=== PATIENT | male | born 1960 | race Caucasian/White ===

== ENCOUNTER → 2017-08-02 | Outpatient (CLI) | payer OTHER ==
[~2017-08-02] MED LIST: BACTRIM DS 8001 TA1 PO; BENADRYL25 M1 PO; BENADRYL25 M2 PO; CLARITIN10 MG PO; LEVOFLOXACIN500 MG PO; MEDROL DOSEPAK4 MG PO; NORCO 325 MG-51 TAB PO; PERCOCET 325 MG1 TA7 PO; PREDNISONE10 MG PO; TENORETIC 50 501 TAB PO; VICODIN 5/500 505 MG PO; ZITHROMAX Z PA250 MG PO
[2017-08-02 14:32] LABS: BASO # 0.1 10*3/uL (0.0-0.1); BASO % 0.6 % (0.0-1.0); EOS # 0.2 10*3/uL (0.0-0.4); EOS % 2.1 % (1.0-4.0); HEMATOCRIT 53.2 % (42.0-52.0); HEMOGLOBIN 18.8 g/dl (14.0-18.0); LYMPH # 4.3 10*3/uL (1.3-4.4); LYMPH % 43.6 % (27.0-41.0); MEAN CELL VOLUME 89.7 fl (80.0-94.0); MEAN CORPUSCULAR HGB 31.7 pg (27.0-31.0); MEAN CORPUSCULAR HGB CONC 35.3 g/dl (33.0-37.0); MEAN PLATELET VOLUME 9.6 fl (9.6-12.3); MONO # 0.8 10*3/uL (0.1-1.0); MONO % 8.3 % (3.0-9.0); NEUT # 4.5 10*3/uL (2.3-7.9); NEUT % 45.3 % (47.0-73.0); PLATELET COUNT AUTOMATED 309 10*3/uL (130-400); RED BLOOD COUNT 5.93 10*6/uL (4.50-5.90); RED CELL DISTRI WIDTH 12.8 % (0-14.5); WHITE BLOOD COUNT 9.9 10*3/uL (4.8-10.8)
[2017-08-02 14:44] LABS: ALBUMIN 2.5 gm/dl (3.1-4.5); ALKALINE PHOSPHATASE 60 U/L (45-117); BILIRUBIN, DIRECT < 0.1 mg/dL (0.0-0.2); BUN 27 mg/dl (7-24); CHLORIDE 99 mmol/L (98-107); CHOLESTEROL 369 mg/dL (<200); CREATININE 1.85 mg/dL (0.70-1.30); HDL CHOLESTEROL 36 mg/dl (40-60); POTASSIUM 3.7 mmol/L (3.5-5.1); SGOT/AST 19 IU/L (3-35); SGPT/ALT 22 U/L (12-78); SODIUM 136 mmol/L (136-145); THYROXINE (T4) TOTAL 7.6 ug/dl (4.5-12.1); TOTAL PROTEIN 6.4 gm/dL (6.4-8.2); TRIGLYCERIDES 433 mg/dl (<150)
== END | disposition home or self-care (01) ==
LOC: LAB 13:43
PROVIDERS: Family Medicine
DX: Z12.5 Encounter for screening for malignant neoplasm of prostate (principal); G47.00 Insomnia, unspecified; R35.1 Nocturia; I10 Essential (primary) hypertension

== ENCOUNTER → 2018-07-26 | Outpatient (CLI) | payer OTHER ==
[~2018-07-26] MED LIST changes: +ACYCLOVIR400 MG PO; +ALPRAZOLAM0.5 M3 PO; +AMBIEN10 M1 PO; +ASPIRIN LITE C325 MG PO; +ATARAX,VISTARIL50 MG PO; +ATENOLOL-CHLOR1 EAC1 PO; +CETIRIZINE HYDR10 MG PO; +COMPAZINE10 M1 PO; +CYCLOPHOSPHAMIDE IV; +CYMBALTA30 MG PO; +DECADRON4 MG PO; +DULOXETINE HCL30 MG PO; +IMODIUM A-D2 M2 PO; +K-TAB20 MEQ PO; +LIPITOR40 MG PO; +MONTELUKAST SOD10 MG PO; +NORCO 5-325 TA1 EACH PO; +OMEPRAZOLE D/R20 MG PO; +QUESTRAN POWDE378 GM PO; +SINGULAIR10 M1 PO; +VELCADE3.5 MG SC; +VITAMIN D31000 UNIT PO; +XANAX0.5 MG PO; +ZOFRAN8 M1 PO; +ZOLPIDEM TART10 MG PO; +ZYRTEC10 MG PO; +[UNRECOGNIZED DRUG - OTHER] MC
[2018-07-26 12:08] LABS: BASO # 0.1 10*3/uL (0.0-0.1); EOS # 0.5 10*3/uL (0.0-0.4); EOS % 4.1 % (1.0-4.0); HEMATOCRIT 45.4 % (42.0-52.0); HEMOGLOBIN 15.5 g/dl (14.0-18.0); LYMPH # 3.4 10*3/uL (1.3-4.4); LYMPH % 31.4 % (27.0-41.0); MEAN CELL VOLUME 93.4 fl (80.0-94.0); MEAN CORPUSCULAR HGB 31.9 pg (27.0-31.0); MEAN CORPUSCULAR HGB CONC 34.1 g/dl (33.0-37.0); MEAN PLATELET VOLUME 9.8 fl (9.6-12.3); MONO % 8.7 % (3.0-9.0); NEUT # 5.9 10*3/uL (2.3-7.9); NEUT % 54.4 % (47.0-73.0); PLATELET COUNT AUTOMATED 408 10*3/uL (130-400); RED BLOOD COUNT 4.86 10*6/uL (4.50-5.90); RED CELL DISTRI WIDTH 15.1 % (0-14.5); WHITE BLOOD COUNT 10.9 10*3/uL (4.8-10.8)
[2018-07-26 12:16] LABS: ALBUMIN 1.9 gm/dl (3.1-4.5); CREATININE 4.2 mg/dL (0.70-1.30); POTASSIUM 2.7 mmol/L (3.5-5.1); TOTAL PROTEIN 6.4 gm/dL (6.4-8.2)
[2018-07-26 13:02] LABS: VITAMIN D, 25-HYDROXY 15.1 ng/mL (30-100)
== END | disposition home or self-care (01) ==
LOC: RESCLI 02:24
PROVIDERS: Internal Medicine Nephrology
DX: Z12.11 Encounter for screening for malignant neoplasm of colon (principal); L29.9 Pruritus, unspecified; I10 Essential (primary) hypertension; G62.9 Polyneuropathy, unspecified; F32.9 Major depressive disorder, single episode, unspecified; F41.9 Anxiety disorder, unspecified; N28.9 Disorder of kidney and ureter, unspecified; D75.1 Secondary polycythemia; F17.200 Nicotine dependence, unspecified, uncomplicated; G47.00 Insomnia, unspecified; Z76.89 Persons encountering health services in other specified circumstances; Z71.6 Tobacco abuse counseling; Z79.899 Other long term (current) drug therapy; Z88.0 Allergy status to penicillin; Z88.8 Allergy status to other drugs, medicaments and biological substances

== ENCOUNTER → 2018-07-27 | Outpatient (CLI) | payer OTHER ==
[2018-07-27 12:36] LABS: BILIRUBIN NEGATIVE (NEGATIVE); BLOOD 2+ (NEGATIVE); CLARITY CLEAR (CLEAR); COLOR YELLOW (YELLOW); GLUCOSE 1+ (NEGATIVE); KETONE NEGATIVE (NEGATIVE); LEUKO ESTERASE NEGATIVE (NEGATIVE); NITRITE NEGATIVE (NEGATIVE); URINE CREATININE RANDOM 90.3 mg/dL; UROBILINOGEN 0.2 E.U./dl (0.2-1.0)
[2018-07-27 13:19] LABS: BACTERIA TRACE
[2018-07-27 13:59] LABS: ALBUMIN 1.8 gm/dl (3.1-4.5)
[2018-07-27 14:06] LABS: CREATININE 4.3 mg/dL (0.70-1.30); TOTAL PROTEIN 6.1 gm/dL (6.4-8.2)
== END | disposition home or self-care (01) ==
LOC: RESCLI 10:53
PROVIDERS: Internal Medicine
DX: N28.1 Cyst of kidney, acquired (principal); M16.12 Unilateral primary osteoarthritis, left hip; R30.0 Dysuria; L29.9 Pruritus, unspecified; I10 Essential (primary) hypertension; G62.9 Polyneuropathy, unspecified; F32.9 Major depressive disorder, single episode, unspecified; F41.9 Anxiety disorder, unspecified; G47.00 Insomnia, unspecified; E87.6 Hypokalemia; F17.200 Nicotine dependence, unspecified, uncomplicated; Z79.899 Other long term (current) drug therapy; Z88.0 Allergy status to penicillin

== ENCOUNTER → 2018-08-17 | Outpatient (CLI) | payer OTHER ==
[2018-08-17 14:09] LABS: BASO # 0.1 10*3/uL (0.0-0.1); BASO % 0.9 % (0.0-1.0); EOS # 0.6 10*3/uL (0.0-0.4); EOS % 5.8 % (1.0-4.0); HEMATOCRIT 42.5 % (42.0-52.0); HEMOGLOBIN 13.8 g/dl (14.0-18.0); LYMPH # 2.8 10*3/uL (1.3-4.4); MEAN CELL VOLUME 97.3 fl (80.0-94.0); MEAN CORPUSCULAR HGB 31.6 pg (27.0-31.0); MEAN CORPUSCULAR HGB CONC 32.5 g/dl (33.0-37.0); MEAN PLATELET VOLUME 10.2 fl (9.6-12.3); MONO # 0.6 10*3/uL (0.1-1.0); MONO % 6.2 % (3.0-9.0); NEUT # 5.9 10*3/uL (2.3-7.9); NEUT % 58.8 % (47.0-73.0); PLATELET COUNT AUTOMATED 314 10*3/uL (130-400); RED BLOOD COUNT 4.37 10*6/uL (4.50-5.90); RED CELL DISTRI WIDTH 14.6 % (0-14.5); WHITE BLOOD COUNT 10.1 10*3/uL (4.8-10.8)
[2018-08-17 14:28] LABS: ALBUMIN 1.8 gm/dl (3.1-4.5); CREATININE 4.58 mg/dL (0.70-1.30); PHOSPHOROUS 3.5 mg/dL (2.5-4.9); POTASSIUM 3.2 mmol/L (3.5-5.1); TOTAL PROTEIN 5.4 gm/dL (6.4-8.2)
== END | disposition home or self-care (01) ==
LOC: LAB 12:54
PROVIDERS: Nurse Practitioner Family
DX: Z12.5 Encounter for screening for malignant neoplasm of prostate (principal); I12.0 Hypertensive chronic kidney disease with stage 5 chronic kidney disease or end stage renal disease; N18.5 Chronic kidney disease, stage 5

== ENCOUNTER → 2018-09-02 | Outpatient (CLI) | payer OTHER | END | disposition home or self-care (01) | LOC: CT 15:00 | DX: N28.1 Cyst of kidney, acquired (principal) ==

== ENCOUNTER 2018-09-23 16:06 | Emergency (ER) | payer OTHER ==
[~2018-09-23] VITALS: Ht 193 cm; Wt 87.1 kg
[~2018-09-23 16:06] MED LIST changes: -ACYCLOVIR400 MG PO; -ASPIRIN LITE C325 MG PO; -COMPAZINE10 M1 PO; -CYCLOPHOSPHAMIDE IV; -DECADRON4 MG PO; -IMODIUM A-D2 M2 PO; -K-TAB20 MEQ PO; -LIPITOR40 MG PO; -NORCO 5-325 TA1 EACH PO; -OMEPRAZOLE D/R20 MG PO; -QUESTRAN POWDE378 GM PO; -VELCADE3.5 MG SC; -VITAMIN D31000 UNIT PO; -ZOFRAN8 M1 PO; -[UNRECOGNIZED DRUG - OTHER] MC
[2018-09-23 16:07] VITALS: BP 120/70
[2018-09-23 16:44] LABS: BASO # 0.1 10*3/uL (0.0-0.1); BASO % 0.6 % (0.0-1.0); EOS # 0.3 10*3/uL (0.0-0.4); EOS % 2.8 % (1.0-4.0); HEMATOCRIT 43.2 % (42.0-52.0); HEMOGLOBIN 14.6 g/dl (14.0-18.0); LYMPH # 2.3 10*3/uL (1.3-4.4); MEAN CELL VOLUME 94.1 fl (80.0-94.0); MEAN CORPUSCULAR HGB 31.8 pg (27.0-31.0); MEAN CORPUSCULAR HGB CONC 33.8 g/dl (33.0-37.0); MONO # 0.9 10*3/uL (0.1-1.0); MONO % 8.4 % (3.0-9.0); NEUT # 6.9 10*3/uL (2.3-7.9); NEUT % 65.9 % (47.0-73.0); PLATELET COUNT AUTOMATED 261 10*3/uL (130-400); RED BLOOD COUNT 4.59 10*6/uL (4.50-5.90); RED CELL DISTRI WIDTH 13.6 % (0-14.5); WHITE BLOOD COUNT 10.5 10*3/uL (4.8-10.8)
[2018-09-23 16:55] LABS: ACT PARTIAL THROMBO TIME 31.2 SECONDS (20.0-32.1)
[2018-09-23 16:58] LABS: ALBUMIN 1.5 gm/dl (3.1-4.5); ALKALINE PHOSPHATASE 92 U/L (45-117); BUN 22 mg/dl (7-24); CHLORIDE 112 mmol/L (98-107); CREATININE 3.66 mg/dL (0.70-1.30); POTASSIUM 3.3 mmol/L (3.5-5.1); SGOT/AST 12 IU/L (3-35); SODIUM 142 mmol/L (136-145); TOTAL PROTEIN 4.9 gm/dL (6.4-8.2)
[2018-09-23 16:59] LABS: SGPT/ALT < 6 U/L (12-78)
[2018-09-23] MEDS ORDERED: NORCO 5-325 TA1 EACH PO (19:31)
== END 2018-09-23 19:31 | disposition home or self-care (01) ==
LOC: ED 16:06
PROVIDERS: Physician Assistant
DX: M79.601 Pain in right arm (principal); M79.89 Other specified soft tissue disorders; R20.0 Anesthesia of skin; N18.9 Chronic kidney disease, unspecified; F17.200 Nicotine dependence, unspecified, uncomplicated; Z95.828 Presence of other vascular implants and grafts; Z79.899 Other long term (current) drug therapy

== ENCOUNTER 2018-10-30 10:55 | Emergency (ER) | payer OTHER ==
[~2018-10-30] VITALS: Ht 193 cm; Wt 88.9 kg
--- NOTE | ~2018-10-30 | EKG ---
[place], [place] ELECTROCARDIOGRAM REPORT NAME: ALEX FARRELL UNIT #: [id number] ROOM: DOCTOR: EPIPHANY DRAFT REPORT BIRTHDATE: [birth year] [facility] Test Date: 2018-10-30 Test Time: 11:46:45 Pat Name: ALEX FARRELL Department: ER Room: Gender: Life Claims Examiner: : 1960 Requested By: MARY MARIE Order Number: [id number] Reading MD: Janice Perez MD Measurements Intervals [place] Rate: 109 P: 64 NC: 140 QRS: 4 QRSD: 86 T: 209 QT: 325 QTc: 438 Interpretive Statements Sinus tachycardia Low voltage ECG Multiform ventricular premature complexes Anterior infarct, old Nonspecific T abnormalities, lateral leads Compared to ECG 09/01/2018 16:00:53 Ventricular premature complex(es) now present T-wave abnormality now presen Myocardial infarct finding still present Electronically Signed On 11-01-2018 9:05:38 PDT by Janice Perez MD CM:EKGRPT:ELECTROCARDIOGRAM REPORT [id number] MARY YU DRAFT REPORT MARY BELTRAN
[~2018-10-30 10:55] MED LIST changes: +NORCO 5-325 TA1 EACH PO
[2018-10-30 11:57] LABS: HEMATOCRIT 40.5 % (42.0-52.0); HEMOGLOBIN 14.2 g/dl (14.0-18.0); MEAN CELL VOLUME 89.8 fl (80.0-94.0); MEAN CORPUSCULAR HGB 31.5 pg (27.0-31.0); MEAN CORPUSCULAR HGB CONC 35.1 g/dl (33.0-37.0); MEAN PLATELET VOLUME 11.7 fl (9.6-12.3); NUCLEATED RED BLOOD CELL 0.4 % (0.0-0.0); PLATELET COUNT AUTOMATED 87 10*3/uL (130-400); RED BLOOD COUNT 4.51 10*6/uL (4.50-5.90); RED CELL DISTRI WIDTH 13.2 % (0-14.5); WHITE BLOOD COUNT 6.9 10*3/uL (4.8-10.8)
[2018-10-30 12:15] LABS: ACT PARTIAL THROMBO TIME 29.8 SECONDS (20.0-32.1)
[2018-10-30 12:23] LABS: PLATELET SUFFICIENCY LOW (NORMAL); POLYCHROMASIA SLIGHT; TOTAL CELLS COUNTED 100 #CELLS
[2018-10-30 12:24] LABS: BURR CELLS FEW
[2018-10-30 12:32] LABS: ALBUMIN 1.4 gm/dl (3.1-4.5); POTASSIUM 3.1 mmol/L (3.5-5.1); TOTAL PROTEIN 4.5 gm/dL (6.4-8.2)
[2018-10-30 12:34] LABS: TROPONIN I 0.351 ng/ml (<0.045)
[2018-10-30] MEDS ORDERED: ASPIRIN LITE C325 MG PO (16:05)
[2018-10-30] MEDS ORDERED: LIPITOR40 MG PO (16:07)
[2018-10-30] MEDS ORDERED: OMEPRAZOLE D/R20 MG PO (16:07)
[2018-10-30] MEDS ORDERED: [UNRECOGNIZED DRUG - OTHER] MC (16:07)
[2018-10-30] MEDS ORDERED: ZOFRAN8 M1 PO (16:08)
[2018-10-30] MEDS ORDERED: K-TAB20 MEQ PO (16:08)
[2018-10-30] MEDS ORDERED: IMODIUM A-D2 M2 PO (16:09)
[2018-10-30] MEDS ORDERED: DECADRON4 MG PO (16:09)
[2018-10-30] MEDS ORDERED: ACYCLOVIR400 MG PO (16:09)
[2018-10-30] MEDS ORDERED: CYMBALTA30 MG PO (16:10)
[2018-10-30] MEDS ORDERED: VITAMIN D31000 UNIT PO (16:10)
[2018-10-30 17:08] VITALS: BP 122/74
[2018-10-30 17:43] LABS: BILIRUBIN 1+ (NEGATIVE); BLOOD 3+ (NEGATIVE); CLARITY CLEAR (CLEAR); COLOR YELLOW (YELLOW); GLUCOSE 1+ (NEGATIVE); KETONE 1+ (NEGATIVE); LEUKO ESTERASE NEGATIVE (NEGATIVE); NITRITE NEGATIVE (NEGATIVE); PH 6.5 (5.0-9.0); SPECIFIC GRAVITY 1.025 (1.005-1.030); UROBILINOGEN 0.2 E.U./dl (0.2-1.0)
[2018-10-30 18:10] LABS: BACTERIA TRACE; EPITHELIAL CELLS 0-2; RBC 21-30 rbc/hpf (0-2); WBC 0-2 wbc/hpf (0-5)
[2018-10-30 18:11] LABS: YEAST TRACE
== END 2018-10-30 17:26 | disposition short-term general hospital (02) ==
LOC: ED 10:55
PROVIDERS: Physician Assistant
DX: E86.0 Dehydration (principal); R19.7 Diarrhea, unspecified; E87.6 Hypokalemia; D69.6 Thrombocytopenia, unspecified; I12.9 Hypertensive chronic kidney disease with stage 1 through stage 4 chronic kidney disease, or unspecified chronic kidney disease; N18.4 Chronic kidney disease, stage 4 (severe); Z72.0 Tobacco use; Z79.899 Other long term (current) drug therapy

== ENCOUNTER 2018-11-03 13:07 | Inpatient (IN) | payer OTHER ==
[~2018-11-03] VITALS: Ht 195.5 cm; Wt 94.9 kg
--- NOTE | ~2018-11-03 | EKG ---
[place], [place] ELECTROCARDIOGRAM REPORT NAME: ALEX FARRELL UNIT #: [id number] ROOM: [facility] DOCTOR: GIGI DRAFT REPORT BIRTHDATE: [birth year] [facility] Test Date: 2018-11-03 Test Time: 19:01:47 Pat Name: ALEX FARRELL Department: Room: [facility] Gender: M Licensed Massage Therapist: Clari Dial : 1960 Requested By: CAITLIN REYES Order Number: [id number] Reading MD: Elo Leonard Measurements Intervals [place] Rate: 104 P: 70 WA: 128 QRS: 18 QRSD: 84 T: 133 QT: 364 QTc: 479 Interpretive Statements Sinus tachycardia Multiple premature complexes, vent \T\ supravent. Anterior infarct, old Nonspecific T abnormalities, lateral leads Compared to ECG 10/30/2018 11:46:45 Ventricular premature complex(es) no longer present Myocardial infarct finding still present T-wave abnormality still present Electronically Signed On 11-04-2018 10:14:30 PDT by Elo Leonard CM:EKGRPT:ELECTROCARDIOGRAM REPORT 1014 CAITLIN YU DRAFT REPORT CAITLIN REYES
--- NOTE | ~2018-11-03 | CON ---
[place], [place] REPORT OF CONSULTATION NAME: ALEX FARRELL [facility] #: [id number] UNIT #: [id number] ROOM: [facility] DOCTOR: DAVE DONOVAN,ZINA BIRTHDATE: [birth year] DOS: 11/04/2018 REASON FOR CONSULTATION: CHF. HISTORY OF PRESENT ILLNESS: The patient is a 58-year-old gentleman with history of hypertension, amyloidosis, chronic kidney disease, tobacco use, was brought into the Emergency Room for confusion, nausea, vomiting, diarrhea. The day before admission, he was taking a shower and then became lightheaded with shortness of breath and "passed out for a few hours," but denies any chest pain or palpitation. He was admitted to the hospital for dehydration, acute renal failure and Cardiology was consulted for "heart failure." The patient was recently started on chemotherapy about a month ago. Since then, he noted to have some edema of the feet as well as some nausea and abdominal pain and diarrhea. Denies any chest pain, palpations at home. No fever and chills. No neurologic symptoms. No blurred vision or double vision. He had an echo in July 2018, showed normal LV function. REVIEW OF SYSTEMS: Review of 10 systems negative except as mentioned above. PAST MEDICAL HISTORY: 1. Hypertension. 2. Amyloidosis. 3. Edema. 4. Vitamin D deficiency. 5. Thrombocytopenia. 6. Anxiety and depression. 7. Dyslipidemia. PAST SURGICAL HISTORY: History of throat surgery. SOCIAL HISTORY: The patient does not drink, does not use illicit drugs. The patient does smoke. FAMILY HISTORY: Father in his 60s from heart disease. Mother in her 60s from heart disease. ALLERGIES: No known drug allergies. HOME MEDICATIONS: Reviewed. PHYSICAL EXAMINATION: VITAL SIGNS: Blood pressure 105/60, pulse 102, respiratory rate 20. Weight 94.9 kg, BMI 24.5. GENERAL: Alert, comfortable, in no acute distress. HEENT: Pupils are round and equal. No jaundice. Tongue was moist and pharynx clear. NECK: Supple, no distended neck veins, no carotid bruit. CHEST: Symmetrical, nontender. LUNGS: A few scattered rhonchi, slightly diminished at bases. HEART: Regular rhythm, no S3. Grade 1/6 systolic murmur. [place], [place] REPORT OF CONSULTATION NAME: BUDALEX Celestin UNIT #: [id number] ROOM: [facility] DOCTOR: DAVE DONOVAN,ZINA BIRTHDATE: [birth year] ABDOMEN: Nontender. Bowel sounds normal. EXTREMITIES: Showed 2 to 3+ pitting edema. Distal pulses are fair. SKIN: Warm and dry. No cyanosis, no clubbing. RECTAL: Deferred. GENITOURINARY: Deferred. NEUROLOGIC: The patient is alert, oriented. No focal neurologic deficit. PSYCHIATRIC: The patient is alert with good mood and affect. REVIEW OF THE DIAGNOSTIC TESTS: EKG shows sinus rhythm with nonspecific ST-T changes. CBC, chemistry reviewed. Cardiac troponins are slightly elevated at 0.35, 0.42, 0.45, 0.35. Hemoglobin 11.6, platelets initially 109, repeat was 135, WBC count 12.8 thousand. A 2D echo in July 2018 showed EF 60% with either moderate pericardial effusion versus epicardial fat. A stress test in May 2015 showed moderate inferoseptal and inferior ischemia. IMPRESSION: 1. Chronic heart failure with preserved ejection fraction. 2. Significant lower extremity edema. 3. Borderline elevation of troponin, chronic due to chronic kidney disease. 4. Recent fall. 5. Acute renal failure on top of chronic kidney disease. 6. Nausea, vomiting, diarrhea with dehydration. 7. Amyloidosis. 8. Hypertension. 9. Tobacco use. 10. Vitamin D deficiency. 11. Thrombocytopenia. RECOMMENDATIONS: 1. Continue current medications per Nephrology and Heme/Onc. 2. I would consider diuretics from tomorrow if it is okay with Nephrology. 3. His edema is multifactorial due to hypoproteinemia with albumin 2, acute renal failure and also chronic diastolic heart failure and also chemotherapy. 3. We will get a limited echo for LV function and valvular function. 4. The patient would like to be transferred to [facility] for further care since his physicians are in that area. 5. Other than 2D echo, no further cardiac testing at this time and above recommendations were discussed with the patient and his who is at bedside and all their questions were answered. Currently, the patient is in no acute distress and there is no acute decompensated heart failure. [place], [place] REPORT OF CONSULTATION NAME: ALEX FARRELL UNIT #: [id number] ROOM: [facility] DOCTOR: DAVE DONOVAN,ZINA BIRTHDATE: [birth year] ZINA AOCSTA MD CM:CONSTR:REPORT OF CONSULTATION 1341 11/05/18 0145 interface
--- NOTE | ~2018-11-03 | EKG ---
[place], [place] ELECTROCARDIOGRAM REPORT NAME: ALEX FARRELL UNIT #: [id number] ROOM: [facility] DOCTOR: GIGI DRAFT REPORT BIRTHDATE: [birth year] [facility] Test Date: 2018-11-03 Test Time: 14:01:01 Pat Name: ALEX FARRELL Department: Room: [facility] Gender: M Quality Assurance Supervisor Chassis: : 1960 Requested By: NICHO TORRES Order Number: [id number] Reading MD: Elo Leonard Measurements Intervals [place] Rate: 100 P: 74 DE: 140 QRS: 11 QRSD: 96 T: 60 QT: 381 QTc: 492 Interpretive Statements Sinus tachycardia Atrial premature complex Low voltage, extremity and precordial leads Anteroseptal infarct, old Compared to ECG 10/30/2018 11:46:45 Atrial premature complex(es) now present Ventricular premature complex(es) no longer present T-wave abnormality no longer present Myocardial infarct finding still present Electronically Signed On 11-04-2018 10:12:10 PDT by Elo Leonard CM:EKGRPT:ELECTROCARDIOGRAM REPORT 1401 1012 NICHO OKEEFE DRAFT REPORT NICHO TORRES DO
[2018-11-03 13:07] VITALS: BP 123/99; BP 82/40
[~2018-11-03 13:07] MED LIST changes: +ACYCLOVIR400 MG PO; +ASPIRIN LITE C325 MG PO; +DECADRON4 MG PO; +IMODIUM A-D2 M2 PO; +K-TAB20 MEQ PO; +LIPITOR40 MG PO; +OMEPRAZOLE D/R20 MG PO; +VITAMIN D31000 UNIT PO; +ZOFRAN8 M1 PO; +[UNRECOGNIZED DRUG - OTHER] MC
[2018-11-03 13:47] LABS: HEMATOCRIT 34.7 % (42.0-52.0); HEMOGLOBIN 11.8 g/dl (14.0-18.0); MEAN CELL VOLUME 91.8 fl (80.0-94.0); MEAN CORPUSCULAR HGB 31.2 pg (27.0-31.0); MEAN PLATELET VOLUME 13.6 fl (9.6-12.3); NUCLEATED RED BLOOD CELL 0.3 10*3/uL (0.0-0.0); NUCLEATED RED BLOOD CELL 2.3 % (0.0-0.0); PLATELET COUNT AUTOMATED 109 10*3/uL (130-400); RED BLOOD COUNT 3.78 10*6/uL (4.50-5.90); RED CELL DISTRI WIDTH 13.6 % (0-14.5); WHITE BLOOD COUNT 11.2 10*3/uL (4.8-10.8)
[2018-11-03 13:55] VITALS: BP 80/40
[2018-11-03 14:02] LABS: ACT PARTIAL THROMBO TIME 40.3 SECONDS (20.0-32.1)
[2018-11-03 14:03] LABS: ALBUMIN 1.2 gm/dl (3.1-4.5); CREATININE 3.89 mg/dL (0.70-1.30); POTASSIUM 3.1 mmol/L (3.5-5.1); TOTAL PROTEIN 3.6 gm/dL (6.4-8.2)
--- NOTE | 2018-11-03 14:03 | NUR ---
PT REFUSES ACCESS RIGHT CHEST WALL MED-PORT.
[2018-11-03 14:08] LABS: TROPONIN I 0.355 ng/ml (<0.045)
[2018-11-03 14:16] LABS: TOTAL CELLS COUNTED 100 #CELLS
[2018-11-03 14:17] LABS: BURR CELLS FEW; OVALOCYTES FEW
[2018-11-03 14:19] LABS: PLATELET SUFFICIENCY LOW (NORMAL)
--- NOTE | 2018-11-03 15:10 | NUR ---
NURSE REPORT TO ANGELICA LAO, FOR CONTINUATION OF CARE. BP REMAINS LOW, SALINE BOLUS INFUSING. URINE SPECIMEN SENT. NO CHANGE IN CONDITION OR COMPLAINT.
[2018-11-03 15:19] LABS: BILIRUBIN 2+ (NEGATIVE); BLOOD 3+ (NEGATIVE); CLARITY CLOUDY (CLEAR); COLOR YELLOW (YELLOW); GLUCOSE TRACE (NEGATIVE); KETONE NEGATIVE (NEGATIVE); LEUKO ESTERASE TRACE (NEGATIVE); NITRITE POSITIVE (NEGATIVE); PH 6.5 (5.0-9.0); SPECIFIC GRAVITY 1.025 (1.005-1.030)
[2018-11-03 15:34] LABS: BACTERIA 4+; EPITHELIAL CELLS 0-2; RBC 21-30 rbc/hpf (0-2); WAXY CAST 0-2
--- NOTE | 2018-11-03 17:13 | NUR ---
up to bsc for roper loose stool
[2018-11-03 17:21] VITALS: BP 92/61
[2018-11-03 18:30] VITALS: BP 91/60
[2018-11-03] MEDS ORDERED: COMPAZINE10 M1 PO (19:19)
[2018-11-03 19:20] LABS: TROPONIN I 0.421 ng/ml (<0.045)
--- NOTE | 2018-11-03 19:28 | NUR ---
DR. MARTINEZ NOTIFIED OF CRITICAL TROPONIN
--- NOTE | 2018-11-03 19:28 | NUR ---
HOME MEDS RECONCILED AT BEDSIDE WITH PT MEDS. MEDICATION RETURNED TO SIGNIFICANT OTHER TO BE TAKEN HOME. DR MARTINEZ NOTIFIED.
--- NOTE | 2018-11-03 19:46 | NUR ---
DR MARTINEZ UP TO FLOOR TO SEE PATIENT.
[2018-11-03] MEDS ORDERED: VELCADE3.5 MG SC (19:56)
[2018-11-03] MEDS ORDERED: CYCLOPHOSPHAMIDE IV (19:59)
[2018-11-03 20:00] VITALS: BP 93/62
[2018-11-03 22:20] LABS: ALBUMIN 1.8 gm/dl (3.1-4.5); CREATININE 3.95 mg/dL (0.70-1.30); POTASSIUM 3.2 mmol/L (3.5-5.1); TOTAL PROTEIN 4.4 gm/dL (6.4-8.2)
--- NOTE | 2018-11-03 22:21 | NUR ---
DR. MARTINEZ CONTACTED AT THIS TIME REGARDING TROPONIN OF 0.457.
--- NOTE | 2018-11-03 23:00 | NUR ---
DR JIMENEZ CALLED TO CHECK IN ON PATIENT. ORDERS TAKEN
--- NOTE | 2018-11-03 23:29 | NUR ---
DR DILLON ANSWERING SERVICE AWARE OF CONSULT.REQUESTED CALL BACK
--- NOTE | 2018-11-03 23:33 | NUR ---
DR ACOSTA AWARE OF CONSULT. STATES TO HOLD FLUIDS AT THIS TIME AND HE WILL SEE THE PATIENT IN THE MORNING
--- NOTE | 2018-11-03 23:56 | NUR ---
DR MARTINEZ AWARE OF LOW BLOOD PRESSURE, LOSING IV ACCESS FOR A THIRD TIME, AND NEW ECCHYMOTIC AREA ON ABDOMEN MEASURING 5 CM X 3.5CM.
[2018-11-04] VITALS (10 sets, daily range): BP systolic 70–107; BP diastolic 30–68
--- NOTE | 2018-11-04 00:10 | NUR ---
MANUAL BP 88/50. DR MARTINEZ AT BEDSIDE AND AWARE
--- NOTE | 2018-11-04 00:24 | NUR ---
DR MARTINEZ UPDATED DR JIMENEZ ON PATIENT CONDITION
--- NOTE | 2018-11-04 00:54 | NUR ---
DR MARTINEZ AWARE OF CRITICAL TROPONIN
--- NOTE | 2018-11-04 02:13 | NUR ---
DR MARTINEZ AWARE OF MANUAL BLOOD PRESSURE. STATES TO RECHECK IN 45 MINUTES
--- NOTE | 2018-11-04 03:15 | NUR ---
DR MARTINEZ AWARE OF 4 RN'S UNABLE TO GET MANUAL BLOOD PRESSURE ON PATIENT. PATIENT LAYING IN BED ALERT AND ORIENTED TO PERSON PLACE AND TIME. DENIES DIZZINESS, LIGHTHEADEDNESS OR PAIN.
--- NOTE | 2018-11-04 03:45 | NUR ---
DR MARTINEZ STATES TO GIVE PATIENT A BATH AND UP TO CHAIR AT BEDSIDE THEN RECHECK BLOOD PRESSURE.
--- NOTE | 2018-11-04 04:04 | NUR ---
DR MARTINEZ AWARE OF MANUAL BLOOD PRESSURE
--- NOTE | 2018-11-04 04:45 | NUR ---
RECEIVED PATIENT FROM , REPORT FROM ANGELICA WILKINS. HEP LOCK IN LEFT UPPER ARM. LUNGS DIMINISHED BILAT, PULSE OX 100% ON RA. ABDOMEN SOFTLY DISTENDED AND NORMO. 3+BLE EDEMA NOTED. CURRENT VITAL SIGNS 96.4-88-18, 108/69.
--- NOTE | 2018-11-04 04:45 | NUR ---
PATIENT TRANSFERRED TO [facility] WITH BELONGINGS. PATIENT ALERT AND ORIENTED X3.REPORT GIVEN TO ERICK DOMINGUEZ.
--- NOTE | 2018-11-04 05:19 | NUR ---
CURRENT B/P 118/77 WILL CONTINUE TO MONITOR.
--- NOTE | 2018-11-04 05:36 | NUR ---
CURRENT B/P 117/81.
[2018-11-04 06:14] LABS: HEMATOCRIT 32.6 % (42.0-52.0); HEMOGLOBIN 11.1 g/dl (14.0-18.0); MEAN CELL VOLUME 92.9 fl (80.0-94.0); MEAN CORPUSCULAR HGB 31.6 pg (27.0-31.0); MEAN PLATELET VOLUME 13.8 fl (9.6-12.3); NUCLEATED RED BLOOD CELL 0.3 10*3/uL (0.0-0.0); NUCLEATED RED BLOOD CELL 2.3 % (0.0-0.0); PLATELET COUNT AUTOMATED 135 10*3/uL (130-400); RED BLOOD COUNT 3.51 10*6/uL (4.50-5.90); RED CELL DISTRI WIDTH 13.8 % (0-14.5); WHITE BLOOD COUNT 12.8 10*3/uL (4.8-10.8)
[2018-11-04 06:29] LABS: POTASSIUM 3.4 mmol/L (3.5-5.1)
[2018-11-04 06:34] LABS: CREATININE 3.91 mg/dL (0.70-1.30); PHOSPHOROUS 2.6 mg/dL (2.5-4.9); TOTAL PROTEIN 4.2 gm/dL (6.4-8.2)
[2018-11-04 06:43] LABS: DOHLE BODIES FEW; PLATELET SUFFICIENCY NORMAL (NORMAL); TOTAL CELLS COUNTED 100 #CELLS; TOXIC GRANULATION SLIGHT
[2018-11-04 07:46] LABS: VITAMIN D, 25-HYDROXY 7.6 ng/mL (30-100)
--- NOTE | 2018-11-04 08:53 | NUR ---
PT MEDICATED WITH ZOFRAN 4MG IV FOR C/O NAUSEA.
--- NOTE | 2018-11-04 09:00 | NUR ---
PHYSICAL THERAPY Physical therapy evaluation attempted. Patient requesting PT to come back later this date. Thank you. Mary Coon,PT,DPT.
--- NOTE | 2018-11-04 09:00 | NUR ---
Midwife Practitioner in to talk to patient. Patient states lives at home alone with his family checking in on him. There are 0 steps in the home. Physician: Dr. Delgado [facility] Home health services: none Patient's level of ADLs: MODERATE ASSIST Patient has working utilities: yes DME: wheelchair, walker, cane, toilet elevator. He would like a BSC and a wheelchair as the wheelchair he is using is borrowed. Follow-up physician's appointment after d/c: will be made by the hospitalist nurse director upon discharge Does patient want to access PORTAL?: no Discharge plan discussed with patient. He lives at home alone with his family checking in on him. He needs minimal assistance with his ADLs and gets around with a cane or a wheelchair. Discussed short term SNF vs home health care services and he would like to think about it. Discharge plan undecided at this time. LOIDA YORK
--- NOTE | 2018-11-04 09:01 | NUR ---
Occupational therapy eval offered but patient declined stating "He is not up to it," and is "too sore." Will attempt occupational therapy eval at a later date. Gustavo Smith OTR/L
[2018-11-04] MEDS ORDERED: QUESTRAN POWDE378 GM PO (09:55)
--- NOTE | 2018-11-04 12:54 | NUR ---
SILVIA SPECIMENS SENT, PRN MEDS GIVEN
--- NOTE | 2018-11-04 14:09 | NUR ---
PHYSICAL THERAPY Patient unavailable for Physical Therapy evaluation at this time due to Echocardiogram. Will try again at later date. Thank you. Mary Coon,PT,DPT.
--- NOTE | 2018-11-04 14:09 | NUR ---
Patient is unavailable for occupational therapy eval at this time as he is receiving an echocardiogram. Will attempt OT eval at a later date. Gustavo Smith OTR/l
--- NOTE | 2018-11-04 21:30 | NUR ---
PATIENT SITTING UP IN CHAIR AT THIS TIME. RECEIVED IV ALBUMIN. DENIES ANY DISCOMFORT. NO S/S OF DISTRESS. CALL LIGHT IN REACH.
--- NOTE | 2018-11-04 21:57 | NUR ---
PATIENT'S ALBUMIN INFUSION COMPLETE. HELPED BACK INTO BED AT THIS TIME. NO S/S OF DISTRESS. CALL LIGHT PLACED WITHIN REACH.
--- NOTE | 2018-11-05 00:12 | NUR ---
SCD'S APPLIED TO PATIENT'S LEGS BILATERALLY.
--- NOTE | 2018-11-05 01:54 | NUR ---
PATIENT RESTING COMFORTABLY IN BED. NO S/S OF DISTRESS. RESP EASY. CALL LIGHT IN REACH.
[2018-11-05 04:00] VITALS: BP 92/52
[2018-11-05 06:14] LABS: HEMATOCRIT 31.4 % (42.0-52.0); HEMOGLOBIN 10.4 g/dl (14.0-18.0); MEAN CELL VOLUME 94.3 fl (80.0-94.0); MEAN CORPUSCULAR HGB 31.2 pg (27.0-31.0); MEAN CORPUSCULAR HGB CONC 33.1 g/dl (33.0-37.0); MEAN PLATELET VOLUME 12.8 fl (9.6-12.3); NUCLEATED RED BLOOD CELL 0.2 10*3/uL (0.0-0.0); NUCLEATED RED BLOOD CELL 2.2 % (0.0-0.0); PLATELET COUNT AUTOMATED 123 10*3/uL (130-400); RED BLOOD COUNT 3.33 10*6/uL (4.50-5.90); RED CELL DISTRI WIDTH 14.3 % (0-14.5); WHITE BLOOD COUNT 10.8 10*3/uL (4.8-10.8)
[2018-11-05 06:35] LABS: ALBUMIN 1.9 gm/dl (3.1-4.5); CREATININE 3.84 mg/dL (0.70-1.30); POTASSIUM 3.8 mmol/L (3.5-5.1); TOTAL PROTEIN 3.9 gm/dL (6.4-8.2)
--- NOTE | 2018-11-05 06:44 | NUR ---
PATIENT SITTING UP IN BED LOOKING THROUGH MENU. NO S/S OF DISTRESS. CALL LIGHT IN REACH. RESP EASY.
--- NOTE | 2018-11-05 06:52 | NUR ---
PATIENT EXPERIENCED A 5 BEAT RUN OF VTACH AT 0628AM. STRIP PLACED IN CHART. PATIENT ASYMPTOMATIC. NO S/S OF DISTRESS. CALL LIGHT IN REACH.
[2018-11-05 08:00] VITALS: BP 126/79
[2018-11-05 08:00] LABS: BURR CELLS FEW; TOTAL CELLS COUNTED 100 #CELLS; TOXIC GRANULATION MODERATE
[2018-11-05 08:01] LABS: PLATELET SUFFICIENCY LOW (NORMAL)
--- NOTE | 2018-11-05 08:58 | NUR ---
PT RESTING IN BED WITH NO C/O ANY. DR FERRELL INTO ASSESS PT AND HAS DOWNGRADED PT TO IMC.
--- NOTE | 2018-11-05 11:50 | NUR ---
TRANSFERRED TO 525 BY ANGELICA KENNEY WITHOUT INCIDENT. REPORT RECIEVED. PT RESTING IN BED WITHOUT SXS OF DISTRESS. NSR ON CM. LUNG CLEAR/DIM ON RA, DENIES SOB. COOPERATIVE, PLEASANT, EDEMA NOTED TO BLE. CALL LIGHT IN REACH. ORIENTED TO FLOOR/ROOM. NO VOICED CONCERNS AT THIS TIME.
[2018-11-05 12:00] VITALS: BP 128/74
--- NOTE | 2018-11-05 15:47 | NUR ---
CALLED IN FOR PT STATUS AND RECENT LAB WORK. NO NEW ORDERS REC'D.
[2018-11-05 16:00] VITALS: BP 116/76
[2018-11-05 20:00] VITALS: BP 104/67
[2018-11-06] VITALS: BP 91/65
[2018-11-06 06:57] LABS: HEMATOCRIT 31.2 % (42.0-52.0); HEMOGLOBIN 10.5 g/dl (14.0-18.0); MEAN CELL VOLUME 93.1 fl (80.0-94.0); MEAN CORPUSCULAR HGB 31.3 pg (27.0-31.0); MEAN CORPUSCULAR HGB CONC 33.7 g/dl (33.0-37.0); MEAN PLATELET VOLUME 12.8 fl (9.6-12.3); NUCLEATED RED BLOOD CELL 0.1 10*3/uL (0.0-0.0); NUCLEATED RED BLOOD CELL 1.1 % (0.0-0.0); PLATELET COUNT AUTOMATED 154 10*3/uL (130-400); RED BLOOD COUNT 3.35 10*6/uL (4.50-5.90); RED CELL DISTRI WIDTH 14.3 % (0-14.5)
[2018-11-06 07:05] LABS: ALBUMIN 1.9 gm/dl (3.1-4.5); POTASSIUM 3.7 mmol/L (3.5-5.1)
[2018-11-06 07:15] LABS: CREATININE 3.64 mg/dL (0.70-1.30); TOTAL PROTEIN 3.9 gm/dL (6.4-8.2)
[2018-11-06 07:55] LABS: PLATELET SUFFICIENCY NORMAL (NORMAL); TOTAL CELLS COUNTED 100 #CELLS
[2018-11-06 08:00] VITALS: BP 118/72
[2018-11-06] MEDS ORDERED: QUESTRAN POWDE378 GM PO (08:47)
--- NOTE | 2018-11-06 09:31 | NUR ---
PT UP IN SHOWER PRIOR TO DISCHARGE.
--- NOTE | 2018-11-06 09:55 | NUR ---
Discharge instructions reviewed with patient/family. Patient receptive and verbalizes understanding. Follow-up care arranged. Written instructions given to patient/family. AUDIE HAWLEY.
--- NOTE | 2018-11-06 09:55 | NUR ---
PATIENT WAITING FOR SPOUSE TO ARRIVE TO TRANSPORT HOME.
--- NOTE | 2018-11-06 09:56 | NUR ---
BILATERAL CHIVO HOSE APPLIED TO PATIENT BEFORE DISCHARGE.
--- NOTE | 2018-11-06 11:05 | NUR ---
PATIENT DISCHARGED AT THIS TIME VIA W/C. BELONGINGS SENT WITH PATIENT.
== END 2018-11-06 11:05 | disposition home or self-care (01) | DRG 314 ==
LOC: ED 13:07 → ICCU 17:43 → EDHOLD 17:43 → 5E 18:25 → ICCU 11-04 04:38 → 5E 11-05 12:17
PROVIDERS: Emergency Medicine; Internal Medicine Nephrology; Student in an Organized Health Care Education/Training Program; ADMIT Family Medicine
DX: I95.9 Hypotension, unspecified (principal); N17.0 Acute kidney failure with tubular necrosis; G93.41 Metabolic encephalopathy; E43 Unspecified severe protein-calorie malnutrition; N18.6 End stage renal disease; N39.0 Urinary tract infection, site not specified; I50.32 Chronic diastolic (congestive) heart failure; E85.81 Light chain (AL) amyloidosis; N04.9 Nephrotic syndrome with unspecified morphologic changes; I13.2 Hypertensive heart and chronic kidney disease with heart failure and with stage 5 chronic kidney disease, or end stage renal disease; F32.9 Major depressive disorder, single episode, unspecified; E55.9 Vitamin D deficiency, unspecified; E53.8 Deficiency of other specified B group vitamins; E78.5 Hyperlipidemia, unspecified; E87.6 Hypokalemia; F41.1 Generalized anxiety disorder; D69.6 Thrombocytopenia, unspecified; E86.0 Dehydration; D64.9 Anemia, unspecified; D72.829 Elevated white blood cell count, unspecified; R79.89 Other specified abnormal findings of blood chemistry; R19.5 Other fecal abnormalities; R53.1 Weakness; R19.7 Diarrhea, unspecified; R42 Dizziness and giddiness; R00.0 Tachycardia, unspecified; F17.210 Nicotine dependence, cigarettes, uncomplicated; G47.00 Insomnia, unspecified; W18.30XA Fall on same level, unspecified, initial encounter; Y93.89 Activity, other specified; Y92.89 Other specified places as the place of occurrence of the external cause; Y99.8 Other external cause status; Z92.21 Personal history of antineoplastic chemotherapy; Z82.49 Family history of ischemic heart disease and other diseases of the circulatory system; Z79.82 Long term (current) use of aspirin; Z79.899 Other long term (current) drug therapy; Z68.24 Body mass index [BMI] 24.0-24.9, adult

== ENCOUNTER → 2019-01-06 | Outpatient (CLI) | payer OTHER ==
[~2019-01-06] MED LIST changes: +COMPAZINE10 M1 PO; +CYCLOPHOSPHAMIDE IV; +QUESTRAN POWDE378 GM PO; +VELCADE3.5 MG SC
[2019-01-06 15:50] LABS: INTERNATIONAL NORM RATIO 0.9 (2.0-3.5)
== END | disposition home or self-care (01) ==
LOC: RESCLI 12:43
PROVIDERS: Internal Medicine
DX: G47.00 Insomnia, unspecified (principal); F41.9 Anxiety disorder, unspecified; F32.9 Major depressive disorder, single episode, unspecified; R11.0 Nausea; E78.5 Hyperlipidemia, unspecified; I12.9 Hypertensive chronic kidney disease with stage 1 through stage 4 chronic kidney disease, or unspecified chronic kidney disease; N18.4 Chronic kidney disease, stage 4 (severe); E55.9 Vitamin D deficiency, unspecified; G62.9 Polyneuropathy, unspecified; E85.81 Light chain (AL) amyloidosis; T82.898S Other specified complication of vascular prosthetic devices, implants and grafts, sequela; R19.7 Diarrhea, unspecified; R53.1 Weakness; F17.200 Nicotine dependence, unspecified, uncomplicated; Z79.899 Other long term (current) drug therapy